=== PATIENT | female | born 1940 | race Native Hawaiian/Other Pacific Islander ===

== ENCOUNTER 2017-01-15 10:26 | Outpatient (CLI) | payer OTHER ==
[~2017-01-15 10:26] MED LIST: AMOX500C85 PO; ASA LO-DOSE81 MG PO; BENZ100C8 PO; DICL1GEL2 TOP; ESCITALOPRAM10 MG PO; FLONASE0.05 %; FLUT0.05; GABA100C2 PO; GABA300C2 PO; LEVO0.0723 PO; LEXAPRO10 MG OR; MUCINEX600 MG OR; MUCINEX600 MG PO; NEXIUM40 M1 OR; NEXIUM40 M1 PO; ONDA4TAB3 PO; PANT40TA PO; TIROSINT75 MCG PO; Z-PAK PO
== END 2017-01-15 11:30 | disposition home or self-care (01) ==
LOC: RAD 10:26
DX: J20.8 Acute bronchitis due to other specified organisms (principal)

== ENCOUNTER 2017-03-20 12:47 | Outpatient (CLI) | payer OTHER ==
[2017-03-20 13:07] LABS: PLATELET COUNT 283 K/uL (152-353)
[2017-03-20 13:32] LABS: POTASSIUM 3.9 mmol/L (3.6-5.2)
== END 2017-03-20 19:09 | disposition home or self-care (01) ==
LOC: LABW 12:47
PROVIDERS: Internal Medicine
DX: N18.3 Chronic kidney disease, stage 3 (moderate) (principal)
CPT/HCPCS: 36415; 80053; 82306; 83735; 83970; 84100; 85027

== ENCOUNTER 2018-02-11 08:35 | Outpatient (CLI) | payer OTHER ==
[2018-02-11 09:00] LABS: PLATELET COUNT 375 K/uL (152-353)
[2018-02-11 09:11] LABS: POTASSIUM 4.5 mmol/L (3.6-5.2)
== END 2018-02-11 20:28 | disposition home or self-care (01) ==
LOC: LABW 08:35
PROVIDERS: Internal Medicine
DX: N18.3 Chronic kidney disease, stage 3 (moderate) (principal)
CPT/HCPCS: 36415; 80053; 82306; 83735; 83970; 84100; 85027

== ENCOUNTER 2018-10-02 11:07 | Outpatient (CLI) | payer OTHER | END 2018-10-02 23:46 | disposition home or self-care (01) | LOC: RAD 11:07 | DX: M54.12 Radiculopathy, cervical region (principal) ==

== ENCOUNTER 2019-11-13 09:55 | Outpatient (CLI) | payer OTHER | END 2019-11-13 21:49 | disposition home or self-care (01) | LOC: RAD 09:55 | DX: Z01.818 Encounter for other preprocedural examination (principal) ==

== ENCOUNTER 2020-02-17 08:44 | Outpatient (CLI) | payer OTHER ==
[2020-02-17 09:26] LABS: POTASSIUM 3.8 mmol/L (3.6-5.2)
[2020-02-17 09:44] LABS: PLATELET COUNT 294 K/uL (152-353)
== END 2020-02-17 19:52 | disposition home or self-care (01) ==
LOC: LABW 08:44
PROVIDERS: ATTEND Internal Medicine
DX: N18.30 Chronic kidney disease, stage 3 unspecified (principal)
CPT/HCPCS: 36415; 80053; 81000; 82306; 83735; 83970; 84100; 85027

== ENCOUNTER 2021-01-31 09:31 | Outpatient (CLI) | payer OTHER | END 2021-01-31 19:38 | disposition home or self-care (01) | LOC: MRI 09:31 | PROVIDERS: ATTEND Nurse Practitioner | DX: M54.16 Radiculopathy, lumbar region (principal) ==

== ENCOUNTER 2021-08-10 08:13 | Outpatient (CLI) | payer OTHER ==
[2021-08-10 08:45] LABS: PLATELET COUNT 358 K/uL (152-353)
== END 2021-08-10 19:07 | disposition home or self-care (01) ==
LOC: LABW 08:13
PROVIDERS: ATTEND Ophthalmology
DX: H05.89 Other disorders of orbit (principal); Z79.899 Other long term (current) drug therapy
CPT/HCPCS: 36415; 82164; 84445; 85007; 85027; 85652; 86038; 86140; 86592

== ENCOUNTER 2021-09-26 08:00 | Outpatient (CLI) | payer OTHER ==
[2021-09-26 08:31] LABS: PLATELET COUNT 344 K/uL (152-353)
[2021-09-26 08:51] LABS: POTASSIUM 3.9 mmol/L (3.6-5.2)
== END 2021-09-26 18:48 | disposition home or self-care (01) ==
LOC: LABW 08:00
PROVIDERS: ATTEND Nurse Practitioner
DX: N18.30 Chronic kidney disease, stage 3 unspecified (principal)
CPT/HCPCS: 36415; 80053; 81002; 82306; 83735; 83970; 84100; 85027

== ENCOUNTER 2021-10-18 12:55 | Outpatient (CLI) | payer OTHER | END 2021-10-18 20:15 | disposition home or self-care (01) | LOC: MRI 12:55 | PROVIDERS: ATTEND Ophthalmology Ophthalmic Plastic and Reconstructive Surgery | DX: G50.8 Other disorders of trigeminal nerve (principal); H05.89 Other disorders of orbit; H57.12 Ocular pain, left eye | CPT/HCPCS: 36415; 82565; 84520; A9576 ==

== ENCOUNTER 2022-02-09 09:04 | Outpatient (CLI) | payer OTHER ==
[2022-02-09 09:34] LABS: PLATELET COUNT 300 K/uL (152-353)
== END 2022-02-09 19:01 | disposition home or self-care (01) ==
LOC: LABW 09:04
PROVIDERS: ATTEND Internal Medicine
DX: N18.31 Chronic kidney disease, stage 3a (principal)
CPT/HCPCS: 36415; 82330; 82570; 83735; 84100; 84156; 85027